=== PATIENT | male | born 2000 | race Caucasian/White ===

== ENCOUNTER 2020-07-21 16:08 | Emergency (ER) | payer OTHER, SELFPAY ==
[2020-07-21 16:10] VITALS: BP 110/76; PULSE 66; RESP 18; TEMP 36.9; O2SAT 99; BMI 19.2
--- NOTE | 2020-07-21 17:17 | PC.NURSE ---
PT EVALED BY CYN GLOVER. PT HAD SMALL FB (BLACK SPECK) ON INNER UPPER EYE LID. SPECK REMOVED BY CYN GLOVER. PT REPORTS NO PAIN AFTER FB REMOVED.
[2020-07-21] MEDS: Tetracaine HCl/PF 0.5% Oph Sol 4 ML DROPS 3 DROP EYE-RIGHT (17:25)
[2020-07-21] MEDS: Erythromycin Base 0.5% Oph Oin 1 GM TUBE 1 CM EYE-LEFT (17:25)
[2020-07-21] MEDS: Fluorescein Sodium STRIP 1 STRIP EYE-LEFT (17:25)
--- NOTE | 2020-07-21 17:33 | ED_ITS ---
HPI - Skin/Abscess/Foreign Bdy General Chief complaint: Skin/Abscess/Foreign Body Stated complaint: metal in eye Time Seen by Provider: 07/21/20 17:19 History of Present Illness HPI narrative: Patient complains of speck of something that went in his right eye while working under a car, no grinding or drilling no power to0l/no vision loss or vision change no photophobia no discharge from the eye Related Data Allergies Allergy/AdvReac Type Severity Reaction Status Date / Time No Known Allergies Allergy Unverified 12/22/19 17:14 [No Known Allergies*] Review of Systems Review of Systems: Positive for right eye foreign body sensation Negatives are no fever no chills no dizziness no weakness no eye pain no photophobia no vision change no vision loss no double vision no discharge from my no headache Yes all other systems are reviewed and are negative [facility] Past Medical History Source: nursing notes reviewed Medical History (Updated 07/21/20 @ 17:34 by CYN Maxwell) No known health problems Social History Social History Alcohol intake: never Smoking Status: Never smoker Use of substances other than those prescribed or required for medical reasons: No Advance Directives: No Advance Directives Information Provided: No Physical Exam Vital Signs: Vital Signs: Last Vital Signs Temp 98.4 F 07/21/20 16:10 Pulse 66 07/21/20 16:10 Resp 18 07/21/20 16:10 BP 110/76 07/21/20 16:10 Pulse Ox 99 07/21/20 16:10 Body Mass Index 19.2 Patient is comfortable relaxed cooperative no acute distress Head is normocephalic atraumatic The visual acuity is 2020 bilaterally with classes The right eye is examined and when I lifted the upper lid I saw speck on the upper lid I removed the spec with a wet Q-tip The eye was stained and there was no corneal abrasion, pupils equal round reactive to light, extraocular motions intact Neck is supple Respiratory no distress Skin no rash Course Course Course Narrative: After removal of the spec from the eyelid the patient had no foreign body sensation no discomfort no pain no changes to his vision, staining with fluorescein did not reveal any laceration and he was discharged feeling better with no other complaints related to his eye Discharge Plan Discharge Clinical Impression: Acute foreign body of right eye Qualifiers: Encounter type: initial encounter Qualified Code(s): T15.91XA - Foreign body on external eye, part unspecified, right eye, initial encounter Patient Disposition: Home, Self-Care Additional Instructions: A small foreign body was removed from the right upper lid When we stained her eye there was no laceration no sign of any other injury or foreign body Return for any loss of vision eye pain any worse condition or concerns
== END 2020-07-21 17:35 | disposition home or self-care (01) ==
PROVIDERS: Emergency Provider Internal Medicine
DX: T15.01XA Foreign body in cornea, right eye, initial encounter (principal); H57.11 Ocular pain, right eye; Y28.9XXA Contact with unspecified sharp object, undetermined intent, initial encounter; Y93.9 Activity, unspecified; Y92.009 Unspecified place in unspecified non-institutional (private) residence as the place of occurrence of the external cause; Y99.9 Unspecified external cause status
CPT/HCPCS: 67938; 99283